=== PATIENT | female | born 1980 | race Caucasian/White ===

== ENCOUNTER 2020-07-04 14:21 | Emergency (ER) | payer SELFPAY ==
[2020-07-04] MEDS ORDERED: Acetaminophen 325 MG TAB ONE (14:40)
[2020-07-04] MEDS ORDERED: Sodium Chloride 0.9% 1,000 ML ONE ×2 (14:40→15:16)
[2020-07-04] MEDS ORDERED: Acetaminophen 500 MG TAB ONE (14:41)
[2020-07-04] MEDS ORDERED: cefTRIAXone\\ROCEPHIN 2 GM VIAL ONE (14:46)
[2020-07-04] MEDS ORDERED: Sodium Chloride 0.9% 100 ML ONE (14:46)
[2020-07-04] MEDS ORDERED: Ondansetron PF 4 MG/2 ML Vial ONE (14:53)
[2020-07-04 14:59] LABS: Bilirubin Negative (Negative); Blood, Urine Moderate (Negative); Clarity Clear (Clear); Glucose, Urine (Dipstick) Negative (Negative); Ketone, Urine 15 mg/dL (Negative); Leukocyte Small (Negative); Nitrite Negative (Negative); Protein, Urine (Dipstick) 30 mg/dL (Neg-Trace); RBC/HPF 0-3 HPF (0-3); Specific Gravity, Urine 1.025 (1.005-1.030); Urobilinogen 0.2 mg/dL (Less than 2); pH, Urine 5.5 (5.0-9.0)
[2020-07-04 15:00] LABS: Bacteria/HPF 2+ HPF (None Seen); Trichomonas/HPF 1+ HPF (None Seen); WBC/HPF 21-50 HPF (0-3)
[2020-07-04 15:05] LABS: ALT (SGPT) 15 U/L (8-55); AST (SGOT) 16 U/L (5-34); Albumin 4.2 g/dL (3.5-5.0); Alkaline Phosphatase 68 U/L (40-110); Anion Gap 13 mmol/L (10-20); BUN (Urea Nitrogen) 9 mg/dL (7.0-18.7); Bilirubin, Total 0.7 mg/dL (0.2-1.2); Calc. Creatinine Clearance 0 mL/min (70-130); Calcium 8.2 mg/dL (7.8-10.44); Carbon Dioxide 21 mmol/L (22-29); Chloride 103 mmol/L (98-107); Globulin 2.5 g/dL (2.4-3.5); Glucose 122 mg/dL (70-105); Lipase 7 U/L (8-78); Protein, Total 6.7 g/dL (6.0-8.3); Sodium 134 mmol/L (136-145)
[2020-07-04 15:08] LABS: Pregnancy Test - Urine (BHCG) Negative (Negative); Pregu Control Background? CLEAR/WHITE (CLR/WHITE); Pregu Control Bar Appear? YES (CONTROL BAR); Specific Gravity 1.025 (1.002-1.036)
[2020-07-04 15:10] LABS: #Lymphocytes 0.5 thou/uL (1.20-3.40); #Monocytes 0.4 thou/uL (0.11-0.59); #Neutrophils 8.7 thou/uL (1.40-6.50); %Basophils 0.5 % (0.0-1.0); %Eosinophils 0.1 % (0.0-10.0); %Lymphocytes 5.6 % (21.0-51.0); %Monocytes 3.8 % (0.0-10.0); Hemoglobin 13.9 g/dL (12.0-16.0); Mean Corpuscular HGB CONC 33.6 g/dL (32.0-36.0); Mean Corpuscular Volume 95.3 fL (78.0-98.0); Mean Platelet Volume 7.4 fL (7.4-10.4); Platelet Count 157 thou/uL (130-400); RBC Distribution Width 11.5 % (11.5-14.5); Red Blood Cell (RBC) Count 4.35 mill/uL (4.20-5.40); White Blood Cell (WBC) Count 9.7 thou/uL (4.8-10.8)
[2020-07-04] MEDS ORDERED: Ketorolac Tromethamine 30 MG/ML VIAL ONE (15:16)
--- NOTE | 2020-07-04 15:33 | RAD ---
EXAM: Single view of the chest HISTORY: Fever COMPARISON: None FINDINGS: Single view of the chest shows a normal sized cardiomediastinal silhouette. There is no angella dence of consolidation, mass, or pleural effusion. No acute osseous abnormality. There are bilateral nipple piercings. IMPRESSION: No evidence of acute cardiopulmonary disease
--- NOTE | 2020-07-04 15:48 | CT ---
CT abdomen and pelvis noncontrast HISTORY: Right flank pain. Hematuria. COMPARISON: 08/09/2015. FINDINGS: Each renal collecting system, ureter, and urinary bladder are decompressed. Within the righ t kidney, there are at least 4 tiny calcifications, measuring up to 0.4 cm at the superior pole and 0.4 cm the inferior pole. At least 6 Tiny calcifications associated with the papillae of the left kidney are no larger than 0.2 cm greatest diameter. Phleboliths are noted within the pelvis, outside of the course of each ureter. Lack of contrast limits evaluation of the soft tissues. There is no evidence of bowel obstruction or inflammation. No free air or free fluid. Follicles arise from the ovaries. Ligation clips noted at each adnexa, presumably from a prior sterilization procedure. IMPRESSION : Small nonobstructing bilateral renal calculi. No acute abnormalities are demonstrated.
[2020-07-04] MEDS ORDERED: Potassium Chloride 20 MEQ TAB ONE (16:54)
== END 2020-07-04 16:57 | disposition home or self-care (01) ==
LOC: NAV ERS 14:21
DX: N10 Acute pyelonephritis (principal); A59.00 Urogenital trichomoniasis, unspecified; F17.210 Nicotine dependence, cigarettes, uncomplicated
CPT/HCPCS: 71045; 74176; 80053; 81003; 81015; 81025; 83605; 83690; 85025; 87040; 87086; 96365; 96375; J0696; J1885; J2405; J3490; J7050

== ENCOUNTER 2023-11-03 19:05 | Emergency (ER) | payer MEDICAID, SELFPAY ==
[2023-11-03] MEDS ORDERED: Erythromycin Base 0.5% Ophth Oint 3.5 gm Tube ONE (19:38)
[2023-11-03] MEDS ORDERED: Cefdinir 300 MG CAP ONE (19:38)
== END 2023-11-03 19:45 | disposition home or self-care (01) ==
LOC: NAV ERS 19:05
DX: L03.213 Periorbital cellulitis (principal); H00.012 Hordeolum externum right lower eyelid; F17.210 Nicotine dependence, cigarettes, uncomplicated
CPT/HCPCS: 99283